=== PATIENT | male | born 1965 | race American Indian/Alaskan Native ===

== ENCOUNTER 2019-02-24 08:42 | Emergency (ER) | payer BC ==
[2019-02-24 08:56] VITALS: BP 160/93
[2019-02-24] MEDS ORDERED: KETOROLAC 30 MG/1 ML INJ IM ONE (10:58)
--- NOTE | 2019-02-24 11:03 | Emergency Department Report ---
ED Lower Extremity HPI - General Chief Complaint: Extremity Problem,Nontraumatic Stated Complaint: RT LEG LIMITED PRESSURE/PAIN Time Seen by Provider: 02/24/19 09:24 Source: patient Mode of arrival: Ambulatory Limitations: No Limitations - History of Present Illness Initial Comments: This is a 53-year-old -[place] male who presents to the emergency room with right lower extremity pain for 3 months. Patient reports past medical history of diabetes and sciatica. Patient states he went to [facility] urgent care 3 months ago and diagnosed with sciatica and given a steroid shot. Patient states symptoms improved but over the past 3 days experiencing sharp radiating pain from a right hip to right thigh. Reports pain is worse with movement. He also reports cough and losing voice 2 days ago. Patient stated side and he caught something there. He denies fever, chills, swelling, change in urinary or bowel pattern, weakness, or paresthesia. MD Complaint: leg injury (right) Onset/Timin -: days(s) Injury: Leg: Right Type of Injury: unknown Place: street/outdoors Severity: severe Severity scale (0 -10): 10 Improves With: immobilization Worsens With: movement Context: walking Associated Symptoms: able to partially bear weight Treatments Prior to Arrival: NSAIDS - Related Data Previous Rx's Medication Instructions Recorded Last Taken Type Methocarbamol [Robaxin] 500 mg PO BID PRN #15 tablet 02/24/19 Unknown Rx Naproxen [Naprosyn] 500 mg PO BID PRN #20 tablet 02/24/19 Unknown Rx Allergies Allergy/AdvReac Type Severity Reaction Status Date / Time No Known Allergies Allergy Unverified 02/24/19 08:47 ED Review of Systems ROS: Stated complaint: RT LEG LIMITED PRESSURE/PAIN Other details as noted in HPI Constitutional: denies: chills, fever Respiratory: denies: cough, shortness of breath, wheezing Cardiovascular: denies: chest pain, palpitations Gastrointestinal: denies: abdominal pain, nausea, diarrhea Musculoskeletal: arthralgia (Right leg pain). denies: back pain, joint swelling Skin: denies: rash, lesions Neurological: denies: headache, weakness, paresthesias Psychiatric: denies: anxiety, depression ED Past Medical Hx - Past Medical History Previous Medical History?: Yes Hx Diabetes: Yes - Surgical History Past Surgical History?: Yes Additional Surgical History: Right shoulder - Social History Smoking Status: Never Smoker Substance Use Type: None - Medications Home Medications: Home Medications Medication Instructions Recorded Confirmed Last Taken Type Methocarbamol [Robaxin] 500 mg PO BID PRN #15 tablet 02/24/19 Unknown Rx Naproxen [Naprosyn] 500 mg PO BID PRN #20 tablet 02/24/19 Unknown Rx ED Physical Exam - General Limitations: No Limitations General appearance: alert, in no apparent distress - ENT ENT exam: Present: mucous membranes moist, TM's normal bilaterally, normal external ear exam, other (turbinates congested with clear discharge). Absent: normal orophraynx (erythematous posterior pharynx, uvula midline without swelling or exudate) - Neck Neck exam: Present: normal inspection - Respiratory Respiratory exam: Present: normal lung sounds bilaterally. Absent: respiratory distress - Cardiovascular Cardiovascular Exam: Present: regular rate, normal rhythm. Absent: systolic murmur, diastolic murmur, rubs, gallop - GI/Abdominal GI/Abdominal exam: Present: soft, normal bowel sounds. Absent: distended, tenderness, guarding, rebound, rigid - Extremities Exam Extremities exam: Present: normal inspection - Expanded Lower Extremity Exam Right Hip exam: Present: normal inspection, full ROM Upper Leg exam: Present: normal inspection, full ROM Knee exam: Present: normal inspection, full ROM Lower Leg exam: Present: normal inspection, full ROM Ankle exam: Present: normal inspection, full ROM Foot/Toe exam: Present: normal inspection, full ROM Neuro vascular tendon exam: Present: no vascular compromise Gait: Positive: observed and limited by pain - Back Exam Back exam: Present: paraspinal tenderness (bilaterally, no midline tenderness, no erythema or swelling, positive straight leg test on the right lower extremity). Absent: full ROM (pain with limited range of motion, 30 flexion) - Neurological Exam Neurological exam: Present: alert, oriented X3, normal gait - Psychiatric Psychiatric exam: Present: normal affect, normal mood - Skin Skin exam: Present: warm, dry, intact, normal color. Absent: rash ED Course Vital Signs 02/24/19 02/24/19 08:54 11:24 Temperature 97.4 F L Pulse Rate 112 H 99 H Respiratory 18 18 Rate Blood Pressure 160/93 O2 Sat by Pulse 98 100 Oximetry ED Lower Extremity MDM - Medical Decision Making Patient was examined by me. Patient is nontoxic appearing and stable. Vitals are normal. Mild paraspinal tenderness bilaterally, 30 flexion, range of motion limited by pain. There is congestion and erythematous posterior pharynx without signs of infection. This is chronic sciatica of right lower extremity and viral laryngitis. Given analgesics while in the ER. Patient refused radiograph due to recent x-ray 3 months ago at [facility]. Patient informed of results. Start Robaxin and naproxen. Instructed to increase fluid intake, rest voice, and take [id number] cold and flu medication. Referral to orthopedics for continued care. Follow up with PCP or return to the ER with worsening symptoms. Patient discharged home in stable condition. Critical care attestation.: If time is entered above; I have spent that time in minutes in the direct care of this critically ill patient, excluding procedure time. ED Disposition Clinical Impression: Sciatica of right side, Cough in adult, Laryngitis Disposition: TO HOME OR SELFCARE Is pt being admited?: No Condition: Stable Instructions: Laryngitis (ED), Sciatica (ED) Additional Instructions: Rest year for at least. Increase fluid intake. Use ice or heat on affected area for 20 minutes and off for 2 hours. Take pain medication as needed for pain. Don't drive or operate heavy machinery while taking muscle relaxers because they may cause drowsiness. Follow up with Primary Care Provider in 2-3 days. Prescriptions: Naproxen [Naprosyn] 500 mg PO BID PRN #20 tablet PRN Reason: Pain , Severe (7-10) Methocarbamol [Robaxin] 500 mg PO BID PRN #15 tablet PRN Reason: Muscle Spasm Referrals: NIGEL KHOURY MD [Staff Physician] - 3-5 Days [facility] [Provider Group] - 3-5 Days [facility] [Provider Group] - 3-5 Days [facility] [Provider Group] - 3-5 Days Forms: Work/School Release Form(ED) Time of Disposition: 11:15
== END 2019-02-24 11:24 | disposition home or self-care (01) ==
LOC: ED 08:42
DX: M54.31 Sciatica, right side (principal); J04.0 Acute laryngitis; E11.9 Type 2 diabetes mellitus without complications; Z98.890 Other specified postprocedural states; Z79.899 Other long term (current) drug therapy
CPT/HCPCS: 96372; 99282; J1885